=== PATIENT | female | born 1965 | race Caucasian/White ===

== ENCOUNTER 2018-06-26 11:01 | Observation (INO) | payer BC ==
[2018-06-26 11:40] LABS: #Basophils 0.1 thou/uL (0.0-0.2); #Eosinphils 0.1 thou/uL (0.0-0.7); #Lymphocytes 2.2 thou/uL (1.20-3.40); #Monocytes 0.6 thou/uL (0.11-0.59); #Neutrophils 5.8 thou/uL (1.40-6.50); %Eosinophils 1.1 % (0.0-10.0); %Lymphocytes 24.9 % (21.0-51.0); %Monocytes 6.5 % (0.0-10.0); %Neutrophils 66.5 % (42.0-75.0); Hemoglobin 14.8 g/dL (12.0-16.0); Mean Corpuscular HGB CONC 32.9 g/dL (32.0-36.0); Mean Corpuscular Hemoglobin 31.9 pg (27.0-31.0); Mean Corpuscular Volume 96.9 fL (78.0-98.0); Mean Platelet Volume 7.3 fL (7.4-10.4); Platelet Count 318 thou/uL (130-400); Red Blood Cell (RBC) Count 4.64 mill/uL (4.20-5.40); White Blood Cell (WBC) Count 8.7 thou/uL (4.8-10.8)
[2018-06-26] MEDS ORDERED: Nitroglycerin 0.4 MG TAB (25 Tab Bottle) ONE (11:51)
[2018-06-26] MEDS ORDERED: Nitroglycerin 2% Ointment 1 INCH/1 GM Packet ONE (11:51)
[2018-06-26 11:54] LABS: ALT (SGPT) 21 U/L (8-55); AST (SGOT) 21 U/L (5-34); Albumin 4.2 g/dL (3.5-5.0); Alkaline Phosphatase 68 U/L (40-150); Anion Gap 11 mmol/L (10-20); BUN (Urea Nitrogen) 8 mg/dL (9.8-20.1); Bilirubin, Total 0.5 mg/dL (0.2-1.2); CK (CPK) 50 U/L (29-168); Calc. Creatinine Clearance 0 mL/min (70-130); Calcium 9.6 mg/dL (7.8-10.44); Carbon Dioxide 28 mmol/L (22-29); Chloride 104 mmol/L (98-107); Estimated GFR-MDRD 73; Globulin 3.1 g/dL (2.4-3.5); Glucose 106 mg/dL (70-105); Potassium 3.9 mmol/L (3.5-5.1); Protein, Total 7.3 g/dL (6.0-8.3); Sodium 139 mmol/L (136-145)
--- NOTE | 2018-06-26 11:54 | RAD ---
PORTABLE CHEST 1 VIEW: Date: 06/26/18 Time: 1114 hours HISTORY: Chest pain. FINDINGS: Comparison made with exam of 12/24/14. The heart size is normal. The lungs are expanded without focal areas of consolidation, pneumothoraces , or pleural effusions. Evidence of old granulomatous disease again noted. IMPRESSION: No radiographic evidence of acute cardiopulmonary process. POS: [facility]
[2018-06-26 11:59] LABS: CKMB 0.6 ng/mL (0-6.6); Troponin I Less than 0.010 ng/mL (< 0.028)
[2018-06-26 14:31] VITALS: BMI 38.5
[2018-06-26] MEDS ORDERED: Bisacodyl 5 MG TAB PO PRN (14:40)
[2018-06-26] MEDS ORDERED: Acetaminophen 325 MG TAB PO PRN (14:40)
[2018-06-26] MEDS ORDERED: Artificial Tear Sol 15 ML BOT EA EYE PRN (14:40)
[2018-06-26] MEDS ORDERED: Senokot S 8.6-50 MG TAB PO PRN (14:40)
[2018-06-26] MEDS ORDERED: Loperamide HCl 2 MG CAP PO PRN (14:40)
[2018-06-26] MEDS ORDERED: Calcium Carbonate 500 MG ChewTAB PO PRN (14:40)
[2018-06-26] MEDS ORDERED: Diabetic Tussin 200 MG/10 ML UDCUP PO PRN (14:40)
[2018-06-26] MEDS ORDERED: Ondansetron PF 4 MG/2 ML Vial IVP PRN (14:40)
[2018-06-26] MEDS ORDERED: Cepastat Lozenges 1 LOZ PO PRN (14:40)
[2018-06-26] MEDS ORDERED: hydrALAZINE 20 MG/ML VIAL SLOW IVP PRN (14:40)
[2018-06-26] MEDS ORDERED: Ondansetron ODT 4 MG TAB PO PRN (14:40)
[2018-06-26] MEDS ORDERED: Sodium Chloride 0.65% Nasal 44 ML BOT EA NARE PRN (14:40)
[2018-06-26] MEDS ORDERED: Loratadine 10 MG TAB PO PRN (14:40)
[2018-06-26] MEDS ORDERED: Eucerin (Mineral Oil/Petrolatum,White) 30 gm Jar TOP PRN (14:40)
[2018-06-26] MEDS ORDERED: HYDROcodone/Acetaminophen 5/325 mg Tablet PO PRN (14:40)
[2018-06-26] MEDS ORDERED: Zolpidem Tartrate 5 MG TAB PO PRN (14:40)
[2018-06-26] MEDS ORDERED: Bisacodyl 10 MG SUPP PR PRN (14:40)
[2018-06-26] MEDS ORDERED: Nicotine 21 MG PATCH TD PRN (14:40)
--- NOTE | 2018-06-26 15:07 | HP ---
DATE OF ADMISSION: 06/26/2018 PRIMARY CARE PHYSICIAN: Alphonse Douglass M.D. REASON FOR ADMISSION: Chest pain. HISTORY OF PRESENT ILLNESS: A 53-year-old female who came to emergency room with a complaint of ches t pain, which is substernal in location, which is radiating to back, getting worse with lying down po sition and radiates to left side of neck and left arm. She feels pressure sensation. There was no s pecific relieving factor. The patient reports that that pain started 2 days ago, which has not compl etely subsided, but intermittently sometimes get worse. There is no specific relation with activity. She does not have any associated nausea, vomiting, diaphoresis, palpitation, dizziness or syncope. She denies any orthopnea, but she feels worsening of pain in lying down position. She prefers herse lf in the propped up position. She denies any fever or chills. She denies any viral infections. Sh e denies any associated fever or chills. She denies any flu-like illness. She denies any UTI sympto ms. She denies any constipation or diarrhea. She did not try any medication. When she came to [facility], at that time, she was slightly hypertensive. In the emergency room, the patient had electrocardiogram, which showed incomplete right bundle branch block pattern without any acute ischemic changes. Her chest x-ray was unremarkable. Routine blood test was also unremarkable. The patient was given nitro patch and nitroglycerin as well as aspirin. Subsequently, the patient was feeling relatively better, but she was still hurting in her epigastric area, which she describes as a soreness. REVIEW OF SYSTEMS: The following complete review of systems was negative, unless otherwise mentioned in the HPI or below: Constitutional: Weight loss or gain, ability to conduct usual activities. Sk in: Rash, itching. Eyes: Double vision, pain. ENT/Mouth: Nose bleeding, neck stiffness, pain, te nderness. Cardiovascular: Palpitations, dyspnea on exertion, orthopnea. Respiratory: Shortness of breath, wheezing, cough, hemoptysis, fever or night sweats. Gastrointestinal: Poor appetite, abdom inal pain, heartburn, nausea, vomiting, constipation, or diarrhea. Genitourinary: Urgency, frequenc y, dysuria, nocturia. Musculoskeletal: Pain, swelling. Neurologic/Psychiatric: Anxiety, depressio n. Allergy/Immunologic: Skin rash, bleeding tendency. Please see my HPI for pertinent positive and negative. All other review of system reviewed and negative except as mentioned in the HPI. PAST MEDICAL HISTORY: Hypertension, dyslipidemia, obesity, tobacco abuse disorder. PAST PSYCHIATRIC HISTORY: Anxiety and depression. PAST SURGICAL HISTORY: Hysterectomy. SOCIAL HISTORY: The patient is and lives at home. She is working in construction. She smok es about 1 pack per day. She denies any other illicit drug abuse. She drinks alcohol socially and o ccasionally. FAMILY HISTORY: Positive for hypertension and dyslipidemia among several family members, but no stro ng family history of coronary artery disease or sudden cardiac . ALLERGIES: No known drug allergy. CURRENT HOME MEDICATIONS: Lipitor 20 mg daily, Lexapro 10 mg daily, losartan with hydrochlorothiazid e 100/25 one tablet daily. EMERGENCY ROOM COURSE: The patient is given aspirin, nitroglycerin sublingual and nitropatch. PHYSICAL EXAMINATION: VITAL SIGNS: On arrival, blood pressure 172/101, pulse 80, respiratory rate 17, temperature 98.2, sa turation 99% on room air, weight 104.3 kg. GENERAL: The patient is currently alert, awake, in no obvious acute distress. HEAD: Normocephalic, atraumatic. EYES: Pupils round and reactive to light. Extraocular muscles intact. ENT: Oropharynx within normal limits. Moist mucous membranes. No oral lesion, no pharyngeal erythe ma, no exudate. NECK: Supple. No JVD, no thyromegaly, no carotid bruit, no jugular venous distention. LUNGS: Clear to auscultation without any rhonchi or rales. CARDIAC: S1, S2 appears regular without any murmur. No gallop, no rub. ABDOMEN: Soft. The patient does report some vague discomfort in her epigastric substernal region, b ut no Zuñiga's sign. No organomegaly, no mass, no suprapubic tenderness. BACK: Unremarkable. No CVA tenderness, no point tenderness. EXTREMITIES: Upper extremities, passive movement of all joints are normal. Blood pressure symmetric al in both upper extremities. Lower extremities, no edema. Good distal pulsation. SKIN: No skin rash. HEMATOLOGICAL: No lymphadenopathy. PSYCHIATRIC: Normal affect. NEUROLOGIC: Nonfocal examination. The patient moves all 4 limbs. Plantar bilateral flexor. SIGNIFICANT LABORATORY DATA: EKG showing incomplete right bundle branch block pattern, left axis dev iation, left atrial enlargement, nonspecific ST-T changes. Chest x-ray based on my review, no acute cardiopulmonary process. No mediastinal widening. CBC, WBC 8.7, hemoglobin 14.8, platelets 318,000. BMP, sodium 139, potassium 3.9, chloride 104, carbon dioxide 28, BUN 8, creatinine 0.82, glucose 10 6, calcium 9.6. LFT, AST 21, ALT 21, alkaline phosphatase 68, albumin 4.2, CK 50, CK-MB 0.6. Tropon in I less than 0.010. ASSESSMENT AND PLAN: 1. Acute chest pain. The patient's chest pain description is atypical in description. She reports that pain started 2 days ago and it is constant with intermittent exacerbation, which is substernal, radiating to back, associated with hypertension, getting worse with lying down position and gets bett er with sitting up position with radiation to left upper extremity as well as neck. I have to rule o ut dissection with CT dissection protocol and I will check her blood pressure in both upper extremiti es on the right and left side to rule out any further asymmetry. Doubt this patient has any dissecti on, but needs to be excluded based on her description. She does not have any risk factors for thromb oembolic disorder and her description is not consistent with thromboembolic disorder, but we will caleb ck D-dimer as well and we are also doing CT dissection protocol. At the same time, we will rule out pulmonary embolism as well. The patient has several risk factors for coronary artery disease and bas ed on her age and sex profile, her probability is mild to moderate. She has baseline EKG changes and that is why she will need an exercise Cardiolite stress test, which we will do tomorrow morning as t he patient already had caffeinated product and lunch. We will do serial cardiac enzymes x3 to rule o ut acute coronary syndrome. We will check lipid profile for risk stratification tomorrow. Healthy l ifestyle measures discussed with the patient. 2. Tobacco abuse disorder. Smoking cessation counseling given. We will offer nicotine patch if nee ded only. 3. Dyslipidemia. Check lipid profile tomorrow morning and continue Lipitor 20 mg p.o. daily. 4. Hypertension. Continue losartan with hydrochlorothiazide 100/25 one tablet daily. 5. Anxiety and depression. Continue Lexapro 10 mg daily. 6. Obesity. Dietary education given. Weight loss education given. Healthy lifestyle measures disc ussed with the patient. 7. Deep venous thrombosis prophylaxis not needed because we are expecting discharge in 24 hours. 8. Gastrointestinal prophylaxis, Pepcid 20 mg p.o. b.i.d. 9. Code status, the patient is full code. The patient is making her own decision by herself. Disposition plan based on above-mentioned investigation result, likely within 24 hours. Plan of care discussed with the patient and other family member at bedside in the emergency room.
[2018-06-26 15:19] LABS: Troponin I Less than 0.010 ng/mL (< 0.028)
--- NOTE | 2018-06-26 16:09 | CT ---
CT ARTERIOGRAM CHEST WITH IV CONTRAST AND 3D MIP IMAGING CT ARTERIOGRAM ABDOMEN WITH IV CONTRAST AND 3D MIP IMAGING 07/06/18 HISTORY: Chest and abdomen pain with radiation to the back. FINDINGS: There is good contrast opacification of the pulmonary arteries and aorta. Normal branching of the gre at vessels. Minimal arterial calcification. No filling defects or aneurysmal dilatation. Scattered calcified granulomata are consistent with healed granulomatous disease. There are degenerat christa changes of the thoracolumbar spine. IMPRESSION: No evidence of aortic dissection or other acute abnormality. Atherosclerosis. POS: [facility]
[2018-06-26] MEDS ORDERED: Iopamidol 370 76% 50 ML VIAL FS ONE (16:30)
[2018-06-26] MEDS: Nitroglycerin 0.4 MG TAB (25 Tab Bottle) SL PRN (17:09)
[2018-06-26 18:11] LABS: Troponin I Less than 0.010 ng/mL (< 0.028)
[2018-06-26] MEDS ORDERED: Atorvastatin Calcium 20 MG TAB PO SCH (21:00)
[2018-06-26] MEDS ORDERED: Escitalopram Oxalate 10 mg Tablet PO SCH (21:00)
[2018-06-26] MEDS: Famotidine 20 MG TAB PO SCH (21:07)
[2018-06-26] MEDS: Nitroglycerin 2% Ointment 1 INCH/1 GM Packet TOP SCH (22:34)
[2018-06-27 04:58] LABS: Cardiac Risk 5.3 (Less than 4.5)
[2018-06-27] MEDS: Nitroglycerin 2% Ointment 1 INCH/1 GM Packet TOP SCH ×2 (06:34→16:35)
[2018-06-27] MEDS: Famotidine 20 MG TAB PO SCH (08:43)
[2018-06-27] MEDS ORDERED: Escitalopram Oxalate 10 mg Tablet PO SCH (09:00)
[2018-06-27] MEDS ORDERED: Aspirin 325 MG TAB PO SCH (09:00)
--- NOTE | 2018-06-27 09:43 | PDOC.PN ---
- Subjective Encounter Start Date: 06/27/18 Encounter Start Time: 07:00 Patient seen and examined. No new complaints. No overnight events - Objective Resuscitation Status: Resuscitation Status FULL:Full Resuscitation MAR Reviewed: Yes Vital Signs & Weight: Vital Signs (12 hours) Temp Pulse Resp BP Pulse Ox 06/27/18 07:20 97.7 F 57 L 16 156/69 H 94 L 06/27/18 04:35 98.3 F 60 12 143/65 H 95 06/26/18 22:51 98.1 F 69 18 127/58 L 95 Weight Weight 231 lb 11.2 oz I&O: 06/26/18 06/27/18 06/28/18 06:59 06:59 06:59 Intake Total 1200 Output Total 700 Balance 500 Result Diagrams: 06/26/18 11:27 06/26/18 11:27 Radiology Reviewed by me: Yes EKG Reviewed by me: Yes Phys Exam - Physical Examination Constitutional: NAD HEENT: PERRLA, moist MMs, sclera anicteric Neck: no JVD, supple Respiratory: no wheezing, no rales, no rhonchi Cardiovascular: RRR, no significant murmur, no rub Gastrointestinal: soft, non-tender, no distention, positive bowel sounds Musculoskeletal: no edema, pulses present Neurological: non-focal, normal sensation, moves all 4 limbs Psychiatric: normal affect, A&O x 3 Skin: no rash, normal turgor Dx/Plan (1) Chest pain Code(s): R07.9 - CHEST PAIN, UNSPECIFIED Status: Acute (2) Dyslipidemia Code(s): E78.5 - HYPERLIPIDEMIA, UNSPECIFIED Status: Chronic (3) Hypertension Code(s): I10 - ESSENTIAL (PRIMARY) HYPERTENSION Status: Chronic (4) Obesity (BMI 30-39.9) Code(s): E66.9 - OBESITY, UNSPECIFIED Status: Chronic (5) Tobacco abuse Code(s): Z72.0 - TOBACCO USE Status: Chronic - Plan cont current plan of care * so far work up negative * will dc to home if stress test negative * medication reviewed as below * symptomatic treatment Review of Systems - Review of Systems ENT: negative: Ear Pain, Ear Discharge, Nose Pain, Nose Discharge, Nose Congestion, Mouth Pain, Mouth Swelling, Throat Pain, Throat Swelling, Other Respiratory: negative: Cough, Dry, Shortness of Breath, Hemoptysis, SOB with Excertion, Pleuritic Pain, Sputum, Wheezing Cardiovascular: negative: chest pain, palpitations, orthopnea, paroxysmal nocturnal dyspnea, edema, light headedness, other Gastrointestinal: negative: Nausea, Vomiting, Abdominal Pain, Diarrhea, Constipation, Melena, Hematochezia, Other Genitourinary: negative: Dysuria, Frequency, Incontinence, Hematuria, Retention , Other Musculoskeletal: negative: Neck Pain, Shoulder Pain, Arm Pain, Back Pain, Hand Pain, Leg Pain, Foot Pain, Other Skin: negative: Rash, Lesions, Jay, Bruising, Other - Medications/Allergies Allergies/Adverse Reactions: Allergies Allergy/AdvReac Type Severity Reaction Status Date / Time No Known Allergies Allergy Verified 06/26/18 14:42 Medications: Current Medications Acetaminophen (Tylenol) 650 mg PO Q4H PRN PRN Reason: Headache/Fever/Mild Pain (1-3) Last Admin: 06/27/18 04:49 Dose: 650 mg Hydrocodone Bitart/Acetaminophen ([place] 5/325) 1 tab PO Q4H PRN PRN Reason: Moderate Pain (4-6) Artificial Tears (Tears Renewed 15ml Bottle) 2 drop EA EYE PRN PRN PRN Reason: Dry Eyes Aspirin (Aspirin) 325 mg PO DAILY [facility] Last Admin: 06/27/18 08:43 Dose: 325 mg Atorvastatin Calcium (Lipitor) 20 mg PO [facility] Last Admin: 06/26/18 21:08 Dose: 20 mg Bisacodyl (Dulcolax) 10 mg PO DAILYPRN PRN PRN Reason: Constipation Bisacodyl (Dulcolax) 10 mg [facility] DAILYPRN PRN PRN Reason: Constipation Calcium Carbonate (Tums) 1,000 mg PO Q4H PRN PRN Reason: Heartburn or Indigestion Escitalopram Oxalate (Lexapro) 10 mg PO [facility] Last Admin: 06/26/18 21:07 Dose: 10 mg Famotidine (Pepcid) 20 mg PO BID [facility] Last Admin: 06/27/18 08:43 Dose: 20 mg Guaifenesin (Robitussin Sf) 200 mg PO Q4H PRN PRN Reason: Cough HCTZ/Losartan Potassium (Hyzaar 50/12.5) 1 tab PO [facility] Last Admin: 06/26/18 21:08 Dose: 1 tab Hydralazine HCl (Apresoline) 10 mg SLOW IVP Q4H PRN PRN Reason: SBP > 180 and HR < 70 Loperamide HCl (Imodium) 2 mg PO PRN PRN PRN Reason: Diarrhea/Loose Stools Loratadine (Claritin) 10 mg PO DAILYPRN PRN PRN Reason: Sinus Symptoms Mineral Oil/White Petrolatum (Eucerin Cream) 0 gm TOP BIDPRN PRN PRN Reason: Dry Skin Nicotine (Nicoderm Patch) 21 mg TD Q24HR PRN PRN Reason: Smoking Cessation Nitroglycerin (Nitrostat) 0.4 mg SL Q5MIN PRN PRN Reason: Chest Pain Last Admin: 06/26/18 17:09 Dose: 0.4 mg Nitroglycerin (Nitro-Bid 2% Ointment) 0.5 inch TOP Q8HR [facility] Last Admin: 06/27/18 06:34 Dose: Not Given Ondansetron HCl (Zofran Odt) 4 mg PO Q6H PRN PRN Reason: Nausea/Vomiting Ondansetron HCl (Zofran) 4 mg IVP Q6H PRN PRN Reason: Nausea/Vomiting Senna/Docusate Sodium (Senokot S) 2 tab PO BID PRN PRN Reason: Constipation Sodium Chloride ([place] Nasal [place] 0.65%) 0 ml EA NARE QIDPRN PRN PRN Reason: Nasal Congestion Throat Lozenges (Cepastat Lozenges) 1 cherelle PO Q2H PRN PRN Reason: Sore Throat Zolpidem Tartrate (Ambien) 5 mg PO HSPRN PRN PRN Reason: Insomnia
[2018-06-27] MEDS ORDERED: Regadenoson 0.4 MG/5 ML SYRINGE ONE (10:23)
[2018-06-27] MEDS: Nitroglycerin 0.4 MG TAB (25 Tab Bottle) SL PRN (10:52)
--- NOTE | 2018-06-27 15:46 | NM ---
NUCLEAR MEDICINE CARDIAC SPECT WITH STRESS ONLY INCLUDING EF AND WALL MOTION: HISTORY: A 53-year-old female with a history of chest pain. This is an exercise sestamibi study using Orlin protocol. The patient was injected with 29.4 mCi Technetium 99m sestamibi intravenously for stress images Multiple scan images were obtained in the short axis, vertical long axis, and horizontal long axis. No scan evidence for infarct or ischemia. LHR 0.3748. EDV 87 mL. EF is 68%. MYOCARDIAL PERFUSION WALL MOTION: Wall motion is normal. IMPRESSION: Normal stress-only nuclear medicine cardiac SPECT with ejection fraction and wall motion. POS: [facility]
[2018-06-27 15:59] VITALS: BP 130/62; TEMP 98
--- NOTE | 2018-06-27 16:12 | DIS ---
DATE OF ADMISSION: 06/26/2018 DATE OF DISCHARGE: 06/27/2018 PRIMARY CARE PHYSICIAN: Alphonse Douglass M.D. DISCHARGE DISPOSITION: Home. PRIMARY DISCHARGE DIAGNOSIS: Chest pain, ruled out acute coronary syndrome. SECONDARY DISCHARGE DIAGNOSES: Hypertension, dyslipidemia, obesity with BMI 38, tobacco abuse disord er. PRIMARY PROCEDURE/OPERATION: None. RADIOLOGICAL INVESTIGATION: Chest x-ray normal. CT dissection negative. Stress test negative. SIGNIFICANT LABORATORY DATA: Hemoglobin 14.8. D-dimer 0.34, creatinine 0.82. Cardiac enzymes negat christa. LFT normal, LDL 146, lipase 12. DISCHARGE MEDICATIONS: Lipitor 20 mg p.o. at bedtime, Lexapro 10 mg p.o. at bedtime, losartan with h ydrochlorothiazide one tablet at bedtime, Pepcid 20 mg p.o. b.i.d. CONTRAINDICATIONS: None. CODE STATUS: FULL CODE. INPATIENT CONSULTANTS: None. ALLERGIES: No known drug allergy. DISCHARGE PLAN: Post hospital, the patient will follow up with primary care physician. HOSPITAL COURSE: A 53-year-old female with above-mentioned medical problem who was admitted by me. Please see my HPI for further detail. The patient was admitted for chest pain. She had an atypical presentation. Her chest pain was radiating to back. That is why we did CT dissection protocol, whic h was normal. Chest x-ray was also normal. Routine blood tests including cardiac enzymes negative. Subsequent cardiac enzymes negative. Telemetry remained normal. The patient underwent stress test that came back negative. Patient was given healthy lifestyle measure discussion. Smoking cessation counseling was given. We are suspecting her chest discomfort may be acid reflux related and that is why we are prescribing Pepcid 20 mg p.o. b.i.d. on discharge. The rest of medication will be continu ed as per previous. The patient is seen and examined at bedside today. Please see my progress note from today for furthe r detail.
== END 2018-06-27 17:02 | disposition home or self-care (01) ==
LOC: ERS 11:01 → 2SW 12:30
PROVIDERS: ADMIT Internal Medicine; ATTEND Internal Medicine
DX: R07.89 Other chest pain (principal); I45.19 Other right bundle-branch block; E78.5 Hyperlipidemia, unspecified; F17.210 Nicotine dependence, cigarettes, uncomplicated; I10 Essential (primary) hypertension; F41.9 Anxiety disorder, unspecified; F32.9 Major depressive disorder, single episode, unspecified; E66.9 Obesity, unspecified; Z68.38 Body mass index [BMI] 38.0-38.9, adult; Z79.899 Other long term (current) drug therapy
CPT/HCPCS: 36415; 71045; 71275; 78452; 80053; 80061; 82553; 83690; 84484; 85025; 85379; 90471; 90686; 90732; 93005; 93017; A9500; G0008; G0009; G0378; J2785; Q0162

== ENCOUNTER 2019-10-23 13:23 | Outpatient (CLI) | payer BC ==
[2019-10-23] MEDS ORDERED: Magnevist 469MG/ML 20 ML VIAL ONE (14:44)
--- NOTE | 2019-10-23 15:45 | MRI ---
MRI OF BRAIN WITH AND WITHOUT IV CONTRAST: 10/23/19 HISTORY: Mild cognitive impairment. FINDINGS: No restricted diffusion is seen. No evidence of infarct, hemorrhage, mass, midline shift, or abnormal extra-axial fluid collections is noted. The ventricular size is normal and the basilar cisterns chávez nt. No abnormal postcontrast enhancement is seen. There are a few foci of T2 prolongation in the leidy ventricular white matter consistent with mild chronic small vessel ischemic disease. The visualized p aranasal sinuses are well aerated. There is a tiny amount of fluid in the mastoid air cells. IMPRESSION: No evidence of acute intracranial process or mass. POS: [facility]
== END 2019-10-23 13:24 | disposition home or self-care (01) ==
LOC: BICMRI 13:23
PROVIDERS: ATTEND Psychiatry & Neurology Neurology
DX: G31.84 Mild cognitive impairment of uncertain or unknown etiology (principal)
CPT/HCPCS: 70553; 82565; A9579

== ENCOUNTER 2022-05-12 09:04 | Outpatient (CLI) | payer BC | END 2022-05-12 09:05 | disposition home or self-care (01) | LOC: BICMAMMO 09:04 | PROVIDERS: ATTEND Family Medicine | DX: Z12.31 Encounter for screening mammogram for malignant neoplasm of breast (principal); M81.0 Age-related osteoporosis without current pathological fracture | CPT/HCPCS: 77063; 77067; 77080 ==

== ENCOUNTER 2022-05-17 10:05 | Outpatient (CLI) | payer BC | END 2022-05-17 10:06 | disposition home or self-care (01) | LOC: SCSMRI 10:05 → BICCT 10:06 | PROVIDERS: ATTEND Family Medicine | DX: Z12.2 Encounter for screening for malignant neoplasm of respiratory organs (principal); F17.210 Nicotine dependence, cigarettes, uncomplicated; F03.90 Unspecified dementia, unspecified severity, without behavioral disturbance, psychotic disturbance, mood disturbance, and anxiety; R41.3 Other amnesia | CPT/HCPCS: 70553; 71271 ==

== ENCOUNTER 2024-06-04 08:19 | Outpatient (CLI) | payer BC | END 2024-06-04 08:20 | disposition home or self-care (01) | LOC: ULT 08:19 | PROVIDERS: ATTEND Nurse Practitioner Family | DX: M79.89 Other specified soft tissue disorders (principal); F17.200 Nicotine dependence, unspecified, uncomplicated; M79.604 Pain in right leg; M79.605 Pain in left leg | CPT/HCPCS: 93923; 93970 ==